=== PATIENT | female | born 1990 | race Caucasian/White ===

== ENCOUNTER 2018-08-13 14:06 | Emergency (ER) | payer OTHER ==
[~2018-08-13] VITALS: Ht 162.6 cm; Wt 122.5 kg
[2018-08-13 14:30] VITALS: BP 129/88
--- NOTE | 2018-08-13 15:22 | PHYS DOC ---
Past Medical History Past Medical History: No Pertinent History Past Surgical History: Cholecystectomy, Tubal ligation Alcohol Use: Occasionally Drug Use: None Adult General Chief Complaint Chief Complaint: COUGH HPI HPI Patient is a 28 year old female who presents with a productive cough and posttussis emesis for one week. Patient denies any fever. Denies any nasal congestion. Review of Systems Review of Systems Constitutional: Denies fever or chills [] Eyes: Denies change in visual acuity, redness, or eye pain [] HENT: Denies nasal congestion or sore throat [] Respiratory: Reports cough and posttussis emesis, denies shortness of breath [] Cardiovascular: No additional information not addressed in HPI [] GI: Denies abdominal pain, bloody stools or diarrhea [] : Denies dysuria or hematuria [] Musculoskeletal: Denies back pain or joint pain [] Integument: Denies rash or skin lesions [] Neurologic: Denies headache, focal weakness or sensory changes [] All other systems were reviewed and found to be within normal limits, except as documented in this note. Allergies Allergies Allergies Coded Allergies Type Severity Reaction Last Updated Verified No Known Drug Allergies 10/07/14 No Physical Exam Physical Exam Constitutional: Well developed, well nourished, no acute distress, non-toxic appearance. [] HENT: Normocephalic, atraumatic, bilateral external ears normal, oropharynx moist, no oral exudates, nose normal. [] Eyes: PERRLA, EOMI, conjunctiva normal, no discharge. [] Neck: Normal range of motion, no tenderness, supple, no stridor. [] Cardiovascular:Heart rate regular rhythm, no murmur [] Lungs & Thorax: Bilateral breath sounds clear to auscultation [] Abdomen: Bowel sounds normal, soft, no tenderness, no masses, no pulsatile masses. [] Skin: Warm, dry, no erythema, no rash. [] Back: No tenderness, no CVA tenderness. [] Extremities: No tenderness, no cyanosis, no clubbing, ROM intact, no edema. [] Neurologic: Alert and oriented X 3, normal motor function, normal sensory function, no focal deficits noted. [] Psychologic: Affect normal, judgement normal, mood normal. [] Current Patient Data Vital Signs Vital Signs Date Time Temp Pulse Resp B/P (MAP) Pulse Ox O2 Delivery O2 Flow Rate FiO2 1/14/19 14:30 98.3 86 17 129/88 (102) 96 Room Air 98.3 Lab Values Laboratory Tests Test 08/13/18 14:54 POC Urine HCG, Qualitative Hcg negative (Negative) EKG EKG [] Radiology/Procedures Radiology/Procedures []PROCEDURE: CHEST PA & LATERAL Chest, 2 views, 08/13/2018: HISTORY: Cough with chest pain The heart size is normal. No pulmonary infiltrate is seen. There is no evidence of pleural fluid. IMPRESSION: No acute cardiopulmonary abnormality is detected. Electronically signed by: Tu Harris MD (08/13/2018 3:37 PM) [facility] DICTATED and SIGNED BY: TU HARRIS MD DATE: 08/13/18 1531 Course & Med Decision Making Course & Med Decision Making Pertinent Labs and Imaging studies reviewed. (See chart for details) This is a 28-year-old female patient presenting to the ED today with cough and posttussis emesis that began a week ago. Chest x-ray interpreted by radiologist as negative for any acute findings. Discharged with prednisone, Tessalon Perles and albuterol inhaler. Follow-up with PCP in 1-2 weeks. OTC medications also recommended. Dragon Disclaimer Dragon Disclaimer This electronic medical record was generated, in whole or in part, using a voice recognition dictation system. Departure Departure Impression: Primary Impression: Acute bronchitis Disposition: 01 HOME, SELF-CARE Condition: STABLE Referrals: NO PCP (PCP) Follow-up with your doctor in 1-2 weeks Patient Instructions: Acute Bronchitis Additional Instructions: You were evaluated in the emergency room for cough. Chest x-ray is negative for any acute findings. Take the prescribed medications as ordered. Follow-up with your doctor in 1-2 weeks. Scripts Prednisone (PREDNISONE) 50 Mg Tablet 1 TAB PO DAILY, #5 TAB Prov: KAELA FRIAS [employer] CABLEMAKING MACHINE OPERATOR 08/13/18 Benzonatate (TESSALON PERLE) 100 Mg Capsule 1 CAP PO TID, #30 CAP Prov: KAELA FRIAS [employer] CABLEMAKING MACHINE OPERATOR 08/13/18 Albuterol Sulfate (VENTOLIN HFA INHALER) 18 Gm Hfa.aer.ad 2 PUFF INH Q4HRS for FOR ASTHMA, #1 INHALER 0 Refills Prov: KAELA FRIAS [employer]ABLEMA[employer] MACHINE OPERATOR 1/14/19 Problem Qualifiers Primary Impression: Acute bronchitis Bronchitis organism: unspecified organism Qualified Codes: J20.9 - Acute bronchitis, unspecified KAELA FRIAS [employer] CABLEMA[employer] MACHINE OPERATOR Aug 13, 2018 15:22
--- NOTE | 2018-08-13 15:42 | RAD ---
Chest, 2 views, 08/13/2018: HISTORY: Cough with chest pain The heart size is normal. No pulmonary infiltrate is seen. There is no evidence of pleural fluid. IMPRESSION: No acute cardiopulmonary abnormality is detected. Electronically signed by: Tu Harris MD (08/13/2018 3:37 PM) [facility] [place]
[2018-08-13] MEDS ORDERED: VENTOLIN HFA18 GM INH (15:51)
[2018-08-13] MEDS ORDERED: BENZ100C PO (15:51)
[2018-08-13] MEDS ORDERED: PRED50TA PO (15:51)
== END 2018-08-13 16:10 | disposition home or self-care (01) ==
LOC: ER 14:06
DX: J20.9 Acute bronchitis, unspecified (principal); R11.10 Vomiting, unspecified
CPT/HCPCS: 71046; 81025; 99283